=== PATIENT | male | born 1960 | race Caucasian/White ===

== ENCOUNTER 2019-01-07 18:20 | Emergency (ER) | payer OTHER, BC ==
[2019-01-07] MEDS ORDERED: Acetaminophen/HYDROcodone 325-5 MG Tab PO ONE (18:21)
[2019-01-07] MEDS ORDERED: Cephalexin 500 MG Cap PO ONE (18:21)
[2019-01-07 18:32] VITALS: BP 135/82
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
[2019-01-07] MEDS ORDERED: Take Home: Cephalexin 500 MG Cap, 4 Cap Pack PO ONE (19:24)
[2019-01-07] MEDS ORDERED: Take Home: Acetaminophen/HYDROcodone 325-5 MG, 2 Tab Pack PO ONE (19:24)
== END 2019-01-07 19:40 | disposition home or self-care (01) ==
LOC: CC.ED 18:20
DX: S20.212A Contusion of left front wall of thorax, initial encounter (principal); L98.8 Other specified disorders of the skin and subcutaneous tissue; Z79.899 Other long term (current) drug therapy; Z79.82 Long term (current) use of aspirin; W22.8XXA Striking against or struck by other objects, initial encounter; Y99.0 Civilian activity done for income or pay
CPT/HCPCS: 71111; 99283; A9270

== ENCOUNTER 2021-08-04 09:47 | Emergency (ER) | payer BC ==
[2021-08-04 09:50] VITALS: BP 149/98; PULSE 66
[2021-08-04] MEDS ORDERED: Bacitracin/Neomycin/Polymyxin B Oint 0.9 GM U/D Packet TOP ONE (10:23)
--- NOTE | 2021-08-04 10:25 | EDM.PDOC ---
ED HPI GENERAL MEDICAL PROBLEM - General Chief Complaint: General Stated Complaint: R Ear LAC Time Seen by Provider: 08/04/21 09:55 Source of Information: Reports: Patient History Limitations: Reports: No Limitations - History of Present Illness INITIAL COMMENTS - FREE TEXT/NARRATIVE: Dontrell is a 61 year old male who presents to ER with complaints of a laceration to his right ear. States had one of his coughing spells where it lasted for nearly 2 hours and ultimately had a syncopal episode as a result and fell off the chair and likely hit his ear on another chair. Has long standing history of coughing spells like this which do occasionally cause him to pass out as he doesn't get enough air in. Has seen pulmonology and had multiple tests done with no treatment found to prevent it. Does have wheezing "all the time". Does use his inhalers. Denies any head pain at this time. No double or blurred vision. No nausea or vomiting. Just has the ear pain. Did drive himself down to the ER from [place]. Onset: Today, Sudden Duration: Minutes: Location: Reports: Head Quality: Reports: Ache Severity: Mild Associated Symptoms: Denies: Confusion, Chest Pain, Cough, Fever/Chills, Loss of Appetite, Nausea/Vomiting, Shortness of Breath - Related Data Allergies Allergy/AdvReac Type Severity Reaction Status Date / Time No Known Allergies Allergy Verified 08/04/21 09:50 Home Meds: Home Meds Fluticasone/Salmeterol [Advair 500-50] 1 puff INH BID 07/03/14 [History] Tiotropium [Spiriva Handihaler] 1 cap INH DAILY 07/03/14 [History] Albuterol [Ventolin HFA] 1 - 2 puff INH Q4H PRN 08/03/14 [History] Clemastine [Tavist Allergy] 1.34 mg PO DAILY 08/03/14 [History] Montelukast Sodium [Singulair] 10 mg PO DAILY 08/03/14 [History] hydrOXYzine HCl [Hydroxyzine HCl] 25 mg PO TID 08/03/14 [History] Cholecalciferol (Vitamin D3) [Vitamin D] 5,000 unit PO DAILY 01/07/15 [History] Magnesium 250 mg PO DAILY 01/07/15 [History] Aspirin [Ecotrin] 325 mg PO DAILY 01/07/19 [History] Rosuvastatin Calcium 5 mg PO DAILY 01/07/19 [History] Past Medical History HEENT History: Reports: Impaired Vision Cardiovascular History: Reports: High Cholesterol Psychiatric History: Reports: Anxiety Oncologic (Cancer) History: Reports: Other (See Below) 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 - Past Surgical History GI Surgical History: Reports: Other (See Below) Other GI Surgeries/Procedures: abdominal tumor removal Musculoskeletal Surgical History: Reports: Other (See Below) Other Musculoskeletal Surgeries/Procedures:: 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 Denies: Nosebleed, Rhinitis, Vertigo, Vision Change Respiratory: Reports: No Symptoms Cardiovascular: Reports: No Symptoms GI/Abdominal: Reports: No Symptoms Musculoskeletal: Reports: No Symptoms Skin: Reports: Wound Neurological: Reports: Syncope. Denies: Confusion, Dizziness, Headache, Weakness Psychiatric: Reports: No Symptoms ED EXAM, GENERAL - Physical Exam Exam: See Below Exam Limited By: No Limitations General Appearance: Alert, WD/WN, No Apparent Distress Eye Exam: Bilateral Eye: EOMI, PERRL Ears: Normal Canal, Normal TMs, Other (4 cm laceration to the frontal and posterior portion of the ear lobe) Nose: Normal Inspection, Normal Mucosa, No Blood Throat/Mouth: Normal Inspection, Normal Oropharynx Head: Normocephalic Neck: Normal Inspection, Supple, Non-Tender Respiratory/Chest: No Respiratory Distress, Lungs Clear, Normal Breath Sounds Cardiovascular: Regular Rate, Rhythm Neurological: Alert, Oriented, CN II-XII Intact, Normal Cognition, Normal Gait, Normal Reflexes, No Motor/Sensory Deficits Skin Exam: Warm, Wound/Incision ED GENERAL MEDICAL PROCEDURES - Laceration/Wound Repair Right Ear Lac/wound length in cm: 4 Appearance: Subcutaneous, Linear, Clean Local Anesthesia - Lidocaine (Xylocaine): 1% Plain Local Anesthetic Volume: 2cc Skin Prep: Other (saf-clens) Exploration/Debridement/Repair: Wound Explored, Explored to Base (lobe cut through entirely on the distal portion) Closed with: Sutures Suture Size: 5-0 # of Sutures: 9 Suture Type: Nylon, Interrupted, Simple Tetanus Status Addressed: Yes Complications: No Course - Vital Signs Last Recorded V/S: Last Vital Signs Temp 97.8 F 08/04/21 09:48 Pulse 66 08/04/21 09:48 Resp 16 08/04/21 09:48 BP 149/98 H 08/04/21 09:48 Pulse Ox 97 08/04/21 09:48 - Orders/Labs/Meds Meds: Medications Discontinued Medications Generic Name Dose Route Start Last Admin Trade Name Freq PRN Reason Stop Dose Admin Lidocaine HCl 5 ml 08/04/21 09:56 08/04/21 09:58 Lidocaine 1% 5 Ml Sdv INJECT 08/04/21 09:57 5 ml ONETIME ONE Administration Neomycin/Polymyxin/Bacitracin 1 each 08/04/21 10:23 Bacitracin/Neomycin/Polymyxin B Oint 0.9 Gm U/D Packet TOP 08/04/21 10:24 ONETIME ONE Departure - Departure Time of Disposition: 10:23 Disposition: Home, Self-Care 01 Condition: Good Clinical Impression: Laceration of ear lobe Qualifiers: Encounter type: initial encounter Laterality: right Qualified Code(s): S01.311A - Laceration without foreign body of right ear, initial encounter - Discharge Information *PRESCRIPTION DRUG MONITORING PROGRAM REVIEWED*: No *COPY OF PRESCRIPTION DRUG MONITORING REPORT IN PATIENT JUAN ANTONIO: No Instructions: Laceration Care, Adult Referrals: Sandra Kelley PA [Primary Care Provider] - Forms: ED Department Discharge Additional Instructions: 1. Keep wound clean and dry 2. Wash gently each day, apply triple antibiotic ointment daily for 3 days 3. Watch for increased redness, drainage, pain or odor and report if concerns. 4. Follow up on Friday for suture removal 5. Call with any questions or concerns. Sepsis Event Note (ED) - Evaluation Sepsis Screening Result: No Definite Risk - Focused Exam Vital Signs: Vital Signs Temp Pulse Resp BP Pulse Ox 08/04/21 09:48 97.8 F 66 16 149/98 H 97
== END 2021-08-04 10:37 | disposition home or self-care (01) ==
LOC: CC.ED 09:47
DX: S01.311A Laceration without foreign body of right ear, initial encounter (principal); E78.00 Pure hypercholesterolemia, unspecified; Z79.82 Long term (current) use of aspirin; Z79.899 Other long term (current) drug therapy; W07.XXXA Fall from chair, initial encounter
CPT/HCPCS: 12013; 99282-25

== ENCOUNTER 2022-11-14 20:55 | Emergency (ER) | payer BC ==
[2022-11-14] MEDS ORDERED: Ketorolac 30 MG/ML SDV IM ONE (21:20)
[2022-11-14] MEDS ORDERED: Orphenadrine 60 MG/2 ML Inj IM ONE (21:21)
[2022-11-14] MEDS ORDERED: Ondansetron 4 MG/2 ML SDV IVPUSH ONE (22:44)
[2022-11-14] MEDS ORDERED: Sodium Chloride 0.9% 10 ML Syringe FLUSH PRN (22:44)
[2022-11-14] MEDS ORDERED: HYDROmorphone 1 MG/ML Syringe IVPUSH ONE (22:44)
[2022-11-14 23:26] VITALS: BP 107/53; PULSE 69
== END 2022-11-14 23:58 ==
LOC: CC.ED 20:55 → SUPCPDRO 20:55 → CC.ED 23:58
DX: S72.001A Fracture of unspecified part of neck of right femur, initial encounter for closed fracture (principal); E78.00 Pure hypercholesterolemia, unspecified; Z79.82 Long term (current) use of aspirin; Z79.899 Other long term (current) drug therapy; W19.XXXA Unspecified fall, initial encounter
CPT/HCPCS: 36415; 72192; 73502; 80053; 85025; 85610; 96372; 96374; 96375; 99285; J1170; J1885; J2360; J2405; 99284

== ENCOUNTER 2023-07-29 10:06 | Emergency (ER) | payer OTHER, BC ==
[2023-07-29] MEDS ORDERED: Diphtheria/Tetanus Toxoids,Adult (Td) 0.5 ML SDV IM ONE (10:24)
[2023-07-29] MEDS ORDERED: Bacitracin/Neomycin/Polymyxin B Oint 0.9 GM U/D Packet TOP ONE (10:25)
[2023-07-29] MEDS ORDERED: Lidocaine 1% with EPINEPHrine 1:100,000 20 ML MDV INJECT ONE (10:25)
[2023-07-29 10:30] LABS: BASOPHILS ABSOLUTE AUTO 0.03 10^3/uL (0.00-0.50); BASOPHILS PERCENT AUTO 0.4 % (0-1); EOSINOPHILS ABSOLUTE AUTO 0.21 10^3/uL (0.00-1.50); HEMATOCRIT 45.9 % (42.0-52.0); IMMATURE GRAN ABSOLUTE AUTO 0.01 10^3/uL (0.00-0.49); IMMATURE GRAN PERCENT AUTO 0.1 % (0.0-4.9); LYMPHOCYTES ABSOLUTE AUTO 1.82 10^3/uL (0.60-5.00); LYMPHOCYTES PERCENT AUTO 25.8 % (24-44); MEAN CORPUSCULAR HEMOGLOBIN 27.2 pg (27.0-32.0); MEAN CORPUSCULAR HGB CONC 32.7 g/dL (32.0-36.0); MEAN CORPUSCULAR VOLUME 83.3 fL (83.0-97.0); MONOCYTES ABSOLUTE AUTO 0.68 10^3/uL (0.00-1.50); MONOCYTES PERCENT AUTO 9.6 % (0-10); NEUTROPHILS ABSOLUTE AUTO 4.31 x10^3/uL (1.80-8.00); NEUTROPHILS PERCENT AUTO 61.1 % (41-71); PLATELET COUNT,PLT 245 10^3/uL (150-400); RED BLOOD CELL COUNT 5.51 x10^6/uL (4.50-6.00); WHITE BLOOD CELL COUNT,WBC 7.1 10^3/uL (4.0-11.0)
[2023-07-29 10:42] VITALS: BP 153/93; PULSE 61
[2023-07-29 10:46] LABS: ALANINE AMINOTRANSFERASE,ALT 31 U/L (12-78); ALBUMIN 3.6 g/dL (3.4-5.0); ALKALINE PHOSPHATASE 71 U/L (46-116); ASPARTATE AMNIOTRANSFERASE,AST 22 U/L (15-37); BILIRUBIN TOTAL 0.3 mg/dL (0.0-1.0); BLOOD UREA NITROGEN,BUN 17 mg/dL (7-18); C-REACTIVE PROTEIN < 0.30 mg/dL (<=0.30); CALCIUM 9.1 mg/dL (8.4-10.1); CARBON DIOXIDE,CO2 31 mmol/L (21-32); CHLORIDE,CL 103 mEq/L (98-106); CREATININE 1.4 mg/dL (0.7-1.3); ESTIMATED GFR 56 mL/min (>=60); GLUCOSE RANDOM 111 mg/dL (75-99); MAGNESIUM 2.1 mg/dL (1.8-2.4); POTASSIUM,K 4.6 mEq/L (3.5-5.0); PROTEIN TOTAL,TP 7.6 g/dL (6.4-8.2); SODIUM,NA 140 mEq/L (136-145)
== END 2023-07-29 12:20 | disposition home or self-care (01) ==
LOC: CC.ED 10:06
DX: S01.81XA Laceration without foreign body of other part of head, initial encounter (principal); R55 Syncope and collapse; E78.00 Pure hypercholesterolemia, unspecified; Z79.899 Other long term (current) drug therapy; Z79.82 Long term (current) use of aspirin; Z23 Encounter for immunization; W19.XXXA Unspecified fall, initial encounter
CPT/HCPCS: 12013; 36415; 70450; 71045; 80053; 83735; 84484; 85025; 86140; 90471; 90714; 93005; 93010; 99284; 99284-25; A9270-GY; J3490

== ENCOUNTER 2024-02-12 12:03 | Emergency (ER) | payer OTHER, BC ==
[2024-02-12 12:26] LABS: BASOPHILS ABSOLUTE AUTO 0.03 10^3/uL (0.00-0.50); BASOPHILS PERCENT AUTO 0.3 % (0-1); EOSINOPHILS ABSOLUTE AUTO 0.19 10^3/uL (0.00-1.50); HEMATOCRIT 48.6 % (42.0-52.0); HEMOGLOBIN 15.2 g/dL (14.0-18.0); IMMATURE GRAN ABSOLUTE AUTO 0.09 10^3/uL (0.00-0.49); LYMPHOCYTES ABSOLUTE AUTO 2.01 10^3/uL (0.60-5.00); LYMPHOCYTES PERCENT AUTO 21.6 % (24-44); MEAN CORPUSCULAR HEMOGLOBIN 27.1 pg (27.0-32.0); MEAN CORPUSCULAR HGB CONC 31.3 g/dL (32.0-36.0); MEAN CORPUSCULAR VOLUME 86.8 fL (83.0-97.0); MONOCYTES ABSOLUTE AUTO 0.82 10^3/uL (0.00-1.50); MONOCYTES PERCENT AUTO 8.8 % (0-10); NEUTROPHILS ABSOLUTE AUTO 6.17 x10^3/uL (1.80-8.00); NEUTROPHILS PERCENT AUTO 66.3 % (41-71); PLATELET COUNT,PLT 235 10^3/uL (150-400); WHITE BLOOD CELL COUNT,WBC 9.3 10^3/uL (4.0-11.0)
[2024-02-12 12:39] LABS: ALBUMIN 3.5 g/dL (3.4-5.0); BILIRUBIN TOTAL 0.5 mg/dL (0.0-1.0); CALCIUM 8.5 mg/dL (8.4-10.1); CREATININE 1.3 mg/dL (0.7-1.3); EST CRCL DRUG DOSING (CG) 62.18 mL/min; PROTEIN TOTAL,TP 7.4 g/dL (6.4-8.2)
[2024-02-12] MEDS: Iopamidol 755 Mg/ML 100 ML Bottle IVPUSH ONE (14:03)
[2024-02-12] MEDS: Acetaminophen 500 MG Tab PO ONE (14:31)
[2024-02-12] MEDS: Acetaminophen 500 MG Tab ONE (15:05)
[2024-02-12 16:07] VITALS: BP 125/84; PULSE 75
== END 2024-02-12 16:06 | disposition home or self-care (01) ==
LOC: CC.ED 12:03
DX: S40.011A Contusion of right shoulder, initial encounter (principal); M54.6 Pain in thoracic spine; R51.9 Headache, unspecified; E78.00 Pure hypercholesterolemia, unspecified; Z79.899 Other long term (current) drug therapy; Z79.51 Long term (current) use of inhaled steroids; Z79.82 Long term (current) use of aspirin; W11.XXXA Fall on and from ladder, initial encounter
CPT/HCPCS: 70450; 71260; 72125; 72170; 73030-RT; 73070-LT; 80053; 85025; 99284; A9270-GY; Q9967